=== PATIENT | male | born 1995 | race Caucasian/White ===

== ENCOUNTER → 2021-06-02 12:31 | Outpatient (BNVA) | payer MEDICARE, MEDICAID, SELFPAY | PROVIDERS: Visit Provider Registered Nurse | DX: Z79.899 Other long term (current) drug therapy (principal) | CPT/HCPCS: 80053; 80061; 80164; 82306; 83036; 83735; 84443; 85025 ==

== ENCOUNTER → 2022-07-27 09:08 | Outpatient (BNVA) | payer MEDICARE, MEDICAID, SELFPAY | PROVIDERS: PCP Nurse Practitioner Family; Visit Provider Registered Nurse | DX: F33.42 Major depressive disorder, recurrent, in full remission (principal); Z79.899 Other long term (current) drug therapy | CPT/HCPCS: 80053; 80061; 80164; 82306; 82607; 83036; 84443; 85025 ==

== ENCOUNTER → 2023-08-15 15:12 | Outpatient (BNVA) | payer MEDICARE, MEDICAID, OTHER, SELFPAY | PROVIDERS: Visit Provider Psychiatry & Neurology Psychiatry | DX: Z79.899 Other long term (current) drug therapy (principal) | CPT/HCPCS: 80053; 80061; 80164; 83036; 84443; 85025 ==

== ENCOUNTER → 2024-06-12 11:38 | Outpatient (BNVA) | payer MEDICARE, MEDICAID, SELFPAY | PROVIDERS: Visit Provider Psychiatry & Neurology Psychiatry | DX: Z79.899 Other long term (current) drug therapy (principal) | CPT/HCPCS: 80053; 80061; 80164; 83036; 84443; 85025 ==

== ENCOUNTER → 2025-03-22 13:16 | Outpatient (BNVA) | payer MEDICARE, OTHER, SELFPAY | PROVIDERS: Visit Provider Psychiatry & Neurology Psychiatry | DX: Z79.899 Other long term (current) drug therapy (principal) | CPT/HCPCS: 80053; 80061; 80164; 83036; 84443; 85025 ==